=== PATIENT | male | born 1960 | race Two or more races ===

== ENCOUNTER 2022-03-29 23:24 | Inpatient (IN) | payer OTHER ==
[~2022-03-29] VITALS: Ht 180.3 cm; Wt 83.5 kg
[2022-03-29] MEDS ORDERED: CARB-98 PO (23:59)
[2022-03-29] MEDS ORDERED: PARO-38 PO (23:59)
[2022-03-30] MEDS ORDERED: ONDANSETRON HCL 4 MG/2 ML VIAL IVP PRN ×2 (03:00→06:30)
[2022-03-30] MEDS ORDERED: 0.9% SODIUM CHLORIDE 10 ML SYRINGE IVP PRN (03:00)
[2022-03-30] MEDS ORDERED: ACETAMINOPHEN 325 MG TABLET PO PRN (03:00)
[2022-03-30 03:30] LABS: COVID AG,FIA SOURCE NASOPHARYNGEAL
[2022-03-30] MEDS ORDERED: PERTUSS(ACELL),DIPH,TET VAC/PF 0.5 ML SYRINGE IM. ONE (03:30)
[2022-03-30 03:35] LABS: BASOPHILS % (AUTO) 0.4 % (0.0-2.0); EOSINOPHILS % (AUTO) 0.5 % (1.0-6.0); HEMATOCRIT 38.7 % (41-53); LYMPHOCYTES # (AUTO) 1.7 K/uL (1.0-4.8); LYMPHOCYTES % (AUTO) 19.3 % (22.0-44.0); MEAN CORPUSCULAR HEMOGLOBIN 30.9 pg (26.0-34.0); MEAN CORPUSCULAR HGB CONC 33.5 G/dL (31.0-37.0); MEAN CORPUSCULAR VOLUME 92 fL (80-100); MONOCYTES # (AUTO) 0.5 K/uL (0.1-1.0); MONOCYTES % (AUTO) 6.1 % (2.0-9.0); NEUTROPHILS # (AUTO) 6.6 K/uL (1.8-7.7); NEUTROPHILS % (AUTO) 73.7 % (40.0-70.0); PLATELET COUNT (AUTO) 146 K/uL (150-450); RED CELL DISTRIBUTION WIDTH 13.5 % (11.5-14.5)
[2022-03-30 03:46] LABS: PROTHROMBIN TIME 10.9 SEC (9.4-11.6)
[2022-03-30 03:52] LABS: ANION GAP 7 mmol/L (8-16); CALCIUM, TOTAL 8.9 mg/dL (8.8-10.5); CARBON DIOXIDE 31 mmol/L (22-29); CHLORIDE 104 mmol/L (98-107); CREATININE 0.88 mg/dL (0.60-1.30); GLUCOSE,RANDOM 107 mg/dL (70-110); POTASSIUM 3.8 mmol/L (3.5-5.1); SODIUM SERUM 142 mmol/L (136-145); UREA NITROGEN, BLOOD 21 mg/dL (7-18)
[2022-03-30 03:54] LABS: GLOMERULAR FILTR. RATE CALC > 60 mL/min (>60)
[2022-03-30 03:57] LABS: ALANINE AMINOTRANSFERASE 10 U/L (12-78); ALBUMIN 3.5 g/dL (3.4-5.0); ALKALINE PHOSPHATASE 104 U/L (46-116); ASPARTATE AMINOTRANSFERASE 21 U/L (15-37); BILIRUBIN,TOTAL 0.5 mg/dL (0.1-1.0)
[2022-03-30] MEDS ORDERED: ONDANSETRON HCL 4 MG/2 ML VIAL IVP ONE (04:00)
[2022-03-30] MEDS ORDERED: SODIUM CHLORIDE 0.9% 1,000 ML IV ONE (04:00)
[2022-03-30] MEDS ORDERED: HYDROmorphone 2 MG/ML VIAL IVP ONE (04:00)
[2022-03-30] MEDS ORDERED: BISACODYL 10 MG RECTAL RECTAL SUPPOSITORY PR PRN (06:30)
[2022-03-30] MEDS ORDERED: MAGNESIUM HYDROXIDE SUSPENSION 30 ML UDCUP PO PRN (06:30)
[2022-03-30] MEDS: HEPARIN SODIUM,PORCINE 5,000 UNITS/ML VIAL SQ SCH ×2 (08:34→17:09)
[2022-03-30] MEDS: PANTOPRAZOLE SODIUM 40 MG DR TABLET PO SCH (09:35)
[2022-03-30] MEDS: CARBIDOPA/LEVODOPA 25-100 MG TABLET PO SCH ×4 (09:35→21:05)
[2022-03-30] MEDS: PARoxetine HCL 20 MG TABLET PO SCH (09:35)
[2022-03-30] MEDS: DOCUSATE SODIUM 100 MG CAPSULE PO SCH ×2 (09:35→20:17)
[2022-03-30] MEDS: HYDROCODONE/ACETAMINOPHEN 5-325 MG TABLET PO PRN ×2 (13:35→20:17)
[2022-03-30 16:30] VITALS: BP 131/74
[2022-03-30] MEDS: MORPHINE SULFATE 2 MG/ML SYRINGE IVP PRN (17:25)
[2022-03-30 19:53] VITALS: BP 123/76
[2022-03-30] MEDS: ZOLPIDEM TARTRATE 5 MG TABLET PO PRN (21:07)
[2022-03-31] MEDS: HYDROCODONE/ACETAMINOPHEN 5-325 MG TABLET PO PRN ×3 (04:03→20:02)
[2022-03-31 04:12] VITALS: BP 135/81
[2022-03-31 06:35] LABS: BASOPHILS % (AUTO) 0.1 % (0.0-2.0); EOSINOPHILS % (AUTO) 2.1 % (1.0-6.0); HEMATOCRIT 39.9 % (41-53); HEMOGLOBIN 13.5 g/dL (13.5-17.5); LYMPHOCYTES # (AUTO) 2.3 K/uL (1.0-4.8); LYMPHOCYTES % (AUTO) 37.5 % (22.0-44.0); MEAN CORPUSCULAR HEMOGLOBIN 31.5 pg (26.0-34.0); MEAN CORPUSCULAR HGB CONC 33.9 G/dL (31.0-37.0); MEAN CORPUSCULAR VOLUME 93 fL (80-100); MONOCYTES # (AUTO) 0.5 K/uL (0.1-1.0); MONOCYTES % (AUTO) 7.7 % (2.0-9.0); NEUTROPHILS # (AUTO) 3.2 K/uL (1.8-7.7); NEUTROPHILS % (AUTO) 52.6 % (40.0-70.0); PLATELET COUNT (AUTO) 154 K/uL (150-450); RED CELL DISTRIBUTION WIDTH 13.4 % (11.5-14.5)
[2022-03-31 06:48] LABS: ANION GAP 1 mmol/L (8-16); CALCIUM, TOTAL 8.9 mg/dL (8.8-10.5); CARBON DIOXIDE 32 mmol/L (22-29); CHLORIDE 103 mmol/L (98-107); GLUCOSE,RANDOM 101 mg/dL (70-110); POTASSIUM 4.3 mmol/L (3.5-5.1); SODIUM SERUM 136 mmol/L (136-145); UREA NITROGEN, BLOOD 10 mg/dL (7-18)
[2022-03-31 06:50] LABS: GLOMERULAR FILTR. RATE CALC > 60 mL/min (>60)
[2022-03-31 07:26] VITALS: BP 130/82
[2022-03-31] MEDS: DOCUSATE SODIUM 100 MG CAPSULE PO SCH ×2 (08:35→20:01)
[2022-03-31] MEDS: HEPARIN SODIUM,PORCINE 5,000 UNITS/ML VIAL SQ SCH ×4 (08:35→23:02)
[2022-03-31] MEDS: PANTOPRAZOLE SODIUM 40 MG DR TABLET PO SCH (08:36)
[2022-03-31] MEDS: PARoxetine HCL 20 MG TABLET PO SCH (08:36)
[2022-03-31] MEDS: CARBIDOPA/LEVODOPA 25-100 MG TABLET PO SCH ×4 (08:37→20:03)
[2022-03-31] MEDS: ACETAMINOPHEN 325 MG TABLET PO PRN (13:15)
[2022-03-31 16:00] VITALS: BP 136/79
[2022-03-31 19:25] VITALS: BP 139/77
[2022-03-31] MEDS: ZOLPIDEM TARTRATE 5 MG TABLET PO PRN (23:04)
[2022-04-01 04:45] VITALS: BP 124/76
[2022-04-01 06:49] LABS: ANION GAP 4 mmol/L (8-16); CALCIUM, TOTAL 9.4 mg/dL (8.8-10.5); CARBON DIOXIDE 31 mmol/L (22-29); CHLORIDE 101 mmol/L (98-107); CREATININE 0.76 mg/dL (0.60-1.30); GLUCOSE,RANDOM 98 mg/dL (70-110); POTASSIUM 4.2 mmol/L (3.5-5.1); SODIUM SERUM 136 mmol/L (136-145); UREA NITROGEN, BLOOD 13 mg/dL (7-18)
[2022-04-01 06:55] LABS: GLOMERULAR FILTR. RATE CALC > 60 mL/min (>60)
[2022-04-01 07:34] VITALS: BP 120/81
[2022-04-01] MEDS: HEPARIN SODIUM,PORCINE 5,000 UNITS/ML VIAL SQ SCH (08:00)
[2022-04-01] MEDS: PARoxetine HCL 20 MG TABLET PO SCH (08:01)
[2022-04-01] MEDS: CARBIDOPA/LEVODOPA 25-100 MG TABLET PO SCH ×3 (08:01→22:57)
[2022-04-01] MEDS: PANTOPRAZOLE SODIUM 40 MG DR TABLET PO SCH (08:01)
[2022-04-01] MEDS: MORPHINE SULFATE 2 MG/ML SYRINGE IVP PRN ×2 (08:01→22:46)
[2022-04-01] MEDS: DOCUSATE SODIUM 100 MG CAPSULE PO SCH ×2 (08:01→22:00)
[2022-04-01] MEDS ORDERED: RINGERS SOLUTION,LACTATED 1,000 ML IV ONE ×3 (09:27→20:32)
[2022-04-01] MEDS ORDERED: DEXAMETHASONE SOD PHOS 4 MG/ML VIAL IVP ONE (12:00)
[2022-04-01] MEDS ORDERED: 0.9% SODIUM CHLORIDE 10 ML VIAL IVP ONE (12:00)
[2022-04-01] MEDS ORDERED: MIDAZOLAM HCL 2 MG/2 ML VIAL IVP ONE (12:00)
[2022-04-01] MEDS ORDERED: ROCURONIUM BROMIDE 10 MG/ML 5 ML VIAL IVP ONE (12:00)
[2022-04-01] MEDS ORDERED: EPHEDrine SULFATE 50 MG/ML VIAL IM ONE (12:00)
[2022-04-01] MEDS ORDERED: PROPOFOL 1% 20 ML VIAL IVP ONE (12:00)
[2022-04-01] MEDS ORDERED: ONDANSETRON HCL 4 MG/2 ML VIAL IVP ONE (12:00)
[2022-04-01] MEDS ORDERED: FentaNYL CITRATE PF 100 MCG/2 ML VIAL IVP ONE (12:00)
[2022-04-01] MEDS ORDERED: SODIUM CL IRRIG SOLN BAG 3,000 ML IRRIG ONE (13:06)
[2022-04-01] MEDS ORDERED: VANCOMYCIN HCL 1 GM/VIAL ONE ×2 (13:06→13:08)
[2022-04-01] MEDS ORDERED: BUPIVACAINE HCL/PF 0.25% 30 ML VIAL ONE (13:16)
[2022-04-01] MEDS ORDERED: HYDROmorphone 2 MG/ML VIAL IVP PRN ×2 (14:15→20:30)
[2022-04-01] MEDS ORDERED: FentaNYL CITRATE PF 100 MCG/2 ML VIAL IVP PRN ×2 (14:15→20:30)
[2022-04-01] MEDS ORDERED: BUPIVACAINE LIPOSOME/PF 1.3%-13.3MG/ML SUSPENSION 20 ML VIAL INJ ONE (15:00)
[2022-04-01 15:28] VITALS: BP 114/76
[2022-04-01] MEDS ORDERED: OXYGEN THERAPY IH SCH (20:00)
[2022-04-01] MEDS ORDERED: FentaNYL CITRATE PF 100 MCG/2 ML VIAL ONE (21:39)
[2022-04-01 22:33] VITALS: BP 118/66
[2022-04-02] MEDS: ZOLPIDEM TARTRATE 5 MG TABLET PO PRN ×2 (00:22→21:12)
[2022-04-02] MEDS: HEPARIN SODIUM,PORCINE 5,000 UNITS/ML VIAL SQ SCH ×4 (00:22→23:04)
[2022-04-02] MEDS: ACETAMINOPHEN 325 MG TABLET PO PRN (00:23)
[2022-04-02 03:08] VITALS: BP 120/76
[2022-04-02] MEDS: MORPHINE SULFATE 2 MG/ML SYRINGE IVP PRN ×5 (03:08→22:58)
[2022-04-02] MEDS: CeFAZolin 1 GM/DEXTROSE 50 ML IV SCH ×2 (03:10→10:13)
[2022-04-02] MEDS ORDERED: SODIUM CHLORIDE 0.9% 250 ML IV ONE (03:14)
[2022-04-02 03:15] VITALS: BP 126/74
[2022-04-02 06:28] LABS: ANION GAP 7 mmol/L (8-16); CALCIUM, TOTAL 9.2 mg/dL (8.8-10.5); CARBON DIOXIDE 27 mmol/L (22-29); CHLORIDE 101 mmol/L (98-107); CREATININE 1.12 mg/dL (0.60-1.30); GLUCOSE,RANDOM 201 mg/dL (70-110); POTASSIUM 4.9 mmol/L (3.5-5.1); SODIUM SERUM 135 mmol/L (136-145); UREA NITROGEN, BLOOD 24 mg/dL (7-18)
[2022-04-02 07:13] LABS: GLOMERULAR FILTR. RATE CALC > 60 mL/min (>60)
[2022-04-02] MEDS: CARBIDOPA/LEVODOPA 25-100 MG TABLET PO SCH ×5 (07:52→22:58)
[2022-04-02] MEDS: OXYGEN THERAPY IH SCH ×2 (07:55→20:00)
[2022-04-02] MEDS: PARoxetine HCL 20 MG TABLET PO SCH (08:06)
[2022-04-02] MEDS: PANTOPRAZOLE SODIUM 40 MG DR TABLET PO SCH (08:06)
[2022-04-02] MEDS: DOCUSATE SODIUM 100 MG CAPSULE PO SCH ×2 (08:06→21:12)
[2022-04-02] MEDS: HYDROCODONE/ACETAMINOPHEN 5-325 MG TABLET PO PRN ×3 (10:13→21:12)
[2022-04-02 15:54] VITALS: BP 126/78
[2022-04-02 19:39] VITALS: BP 140/75
[2022-04-02] MEDS ORDERED: NALOXONE HCL 0.4 MG/ML VIAL IVP PRN (21:15)
[2022-04-03 04:00] VITALS: BP 142/80
[2022-04-03] MEDS: MORPHINE SULFATE 2 MG/ML SYRINGE IVP PRN ×3 (05:38→17:21)
[2022-04-03] MEDS: CARBIDOPA/LEVODOPA 25-100 MG TABLET PO SCH ×4 (05:38→17:21)
[2022-04-03] MEDS: OXYGEN THERAPY IH SCH (08:00)
[2022-04-03 08:54] VITALS: BP 122/70
[2022-04-03] MEDS: PANTOPRAZOLE SODIUM 40 MG DR TABLET PO SCH (09:08)
[2022-04-03] MEDS: HEPARIN SODIUM,PORCINE 5,000 UNITS/ML VIAL SQ SCH ×2 (09:08→17:20)
[2022-04-03] MEDS: DOCUSATE SODIUM 100 MG CAPSULE PO SCH (09:08)
[2022-04-03] MEDS: PARoxetine HCL 20 MG TABLET PO SCH (09:09)
[2022-04-03] MEDS ORDERED: OPIC50CA PO (16:36)
[2022-04-03] MEDS ORDERED: HEPA500018 SQ (16:50)
[2022-04-03] MEDS ORDERED: AMAN68.5 PO (16:53)
[2022-04-03 16:55] VITALS: BP 121/64
[2022-04-03 16:57] LABS: COVID AG,FIA SOURCE NASOPHARYNGEAL
[2022-04-03] MEDS ORDERED: PRAM2.252 PO (16:58)
[2022-04-03] MEDS ORDERED: TRAZ-184 PO (17:01)
[2022-04-03] MEDS ORDERED: TRAZ-257 PO (17:01)
== END 2022-04-03 20:10 | DRG 315 ==
LOC: EMS 23:25 → 6N 03-30 15:08
PROVIDERS: ADMIT Internal Medicine; ATTEND Internal Medicine
PROC: 2W3AX1Z Immobilization of Right Upper Arm using Splint (ICD-10-PCS; 2022-03-30)
PROC: 0PSJ04Z Reposition Left Radius with Internal Fixation Device, Open Approach (ICD-10-PCS; principal; 2022-04-01 19:00)
DX: S52.572A Other intraarticular fracture of lower end of left radius, initial encounter for closed fracture (principal); E46 Unspecified protein-calorie malnutrition; G20 Parkinson's disease; D64.9 Anemia, unspecified; S00.83XA Contusion of other part of head, initial encounter; F32.A Depression, unspecified; F41.9 Anxiety disorder, unspecified; Z20.822 Contact with and (suspected) exposure to COVID-19; Z59.02 Unsheltered homelessness; Y08.89XA Assault by other specified means, initial encounter; Y93.89 Activity, other specified; Y92.89 Other specified places as the place of occurrence of the external cause; Y99.8 Other external cause status; Z82.3 Family history of stroke; Z68.25 Body mass index [BMI] 25.0-25.9, adult
CPT/HCPCS: 71045; 73200; 80048; 80053; 84484; 85025; 85610; 87081; 90715; 93005; 97110; 97162; 97165; 97530; 97535; 99285; C9290; J0690; J1100; J1170; J1644; J2250; J2270; J2405; J2704; J3010; J3370; J3490; J7030; J7050; J7120; 36415-L1; 36415-TC; C1716; Z7610

== ENCOUNTER 2023-02-16 13:29 | Emergency (ER) | payer OTHER ==
[~2023-02-16] VITALS: Ht 180.3 cm; Wt 87.3 kg
[~2023-02-16 13:29] MED LIST: AMAN68.5 PO; CARB1TAB36 PO; HEPA500018 SQ; OPIC50CA PO; PARO-38 PO; PRAM2.252 PO; TRAZ-184 PO; TRAZ-257 PO
[2023-02-16 13:42] VITALS: TEMP 98.9
[2023-02-16] MEDS ORDERED: LIDOCAINE/PRILOCAINE 2.5% 30 GM CREAM TP ONE (14:45)
[2023-02-16] MEDS ORDERED: ATOR20TA65 PO (14:51)
[2023-02-16] MEDS ORDERED: PRAM0.752 PO (14:51)
[2023-02-16] MEDS ORDERED: SILD20TA2 PO (14:51)
[2023-02-16] MEDS ORDERED: LEVO42CA2 IH (14:51)
[2023-02-16] MEDS ORDERED: DICL100G31 TP (14:51)
[2023-02-16] MEDS ORDERED: OPIC50CA PO (14:51)
[2023-02-16] MEDS ORDERED: NEOMYCIN/BACITRACIN/POLYMYXIN B OINTMENT PACKET TP ONE (16:00)
[2023-02-16] MEDS ORDERED: CEPH-558 PO (16:48)
[2023-02-16 16:59] VITALS: BP 111/67; PULSE 89; RESP 20
== END 2023-02-16 17:08 | disposition home or self-care (01) ==
LOC: EMS 13:34
DX: L03.031 Cellulitis of right toe (principal); F41.9 Anxiety disorder, unspecified; F32.A Depression, unspecified; G20 Parkinson's disease
CPT/HCPCS: 10060; 99283

== ENCOUNTER 2023-02-19 21:43 | Emergency (ER) | payer OTHER ==
[~2023-02-19] VITALS: Ht 177.8 cm; Wt 80.9 kg
[~2023-02-19 21:43] MED LIST changes: +ATOR20TA65 PO; +CEPH-558 PO; +DICL100G31 TP; +LEVO42CA2 IH; +PRAM0.752 PO; +SILD20TA2 PO
[2023-02-19 22:11] VITALS: TEMP 97.8
[2023-02-20] MEDS ORDERED: SODIUM CHLORIDE 0.9% 1,000 ML IV ONE (02:00)
[2023-02-20 02:41] LABS: ANION GAP 12 mmol/L (8-16); BASOPHILS % (AUTO) 0.9 % (0.0-2.0); CALCIUM, TOTAL 9.3 mg/dL (8.8-10.5); CARBON DIOXIDE 30 mmol/L (22-29); CHLORIDE 103 mmol/L (98-107); CREATININE 0.97 mg/dL (0.60-1.30); EOSINOPHILS % (AUTO) 4.9 % (1.0-6.0); GLOMERULAR FILTR. RATE CALC > 60 mL/min (>60); GLUCOSE,RANDOM 113 mg/dL (70-110); HEMATOCRIT 41.7 % (41-53); HEMOGLOBIN 13.8 g/dL (13.5-17.5); LYMPHOCYTES # (AUTO) 2.7 K/uL (1.0-4.8); LYMPHOCYTES % (AUTO) 52.1 % (22.0-44.0); MEAN CORPUSCULAR HEMOGLOBIN 31.5 pg (26.0-34.0); MEAN CORPUSCULAR HGB CONC 33.2 G/dL (31.0-37.0); MEAN CORPUSCULAR VOLUME 95 fL (80-100); MONOCYTES # (AUTO) 0.5 K/uL (0.1-1.0); MONOCYTES % (AUTO) 10.5 % (2.0-9.0); NEUTROPHILS # (AUTO) 1.6 K/uL (1.8-7.7); NEUTROPHILS % (AUTO) 31.6 % (40.0-70.0); PLATELET COUNT (AUTO) 154 K/uL (150-450); POTASSIUM 3.9 mmol/L (3.5-5.1); RED BLOOD CELL COUNT(AUTO) 4.39 MIL/uL (4.50-5.90); RED CELL DISTRIBUTION WIDTH 13.6 % (11.5-14.5); SODIUM SERUM 145 mmol/L (136-145)
[2023-02-20 02:44] LABS: ALANINE AMINOTRANSFERASE 22 U/L (12-78); ALBUMIN 3.4 g/dL (3.4-5.0); ALKALINE PHOSPHATASE 88 U/L (46-116); ASPARTATE AMINOTRANSFERASE 20 U/L (15-37); BILIRUBIN,TOTAL 0.3 mg/dL (0.1-1.0); TOTAL PROTEIN, SERUM 7.1 g/dL (6.4-8.2)
[2023-02-20 03:52] VITALS: BP 133/84; PULSE 76; RESP 16
== END 2023-02-20 03:54 | disposition home or self-care (01) ==
LOC: EMS 21:44
DX: G20 Parkinson's disease (principal); F41.9 Anxiety disorder, unspecified; F32.A Depression, unspecified
CPT/HCPCS: 99283; 80053; 85025; 96360; G0480

== ENCOUNTER 2024-05-31 15:33 | Emergency (ER) | payer OTHER ==
[~2024-05-31] VITALS: Ht 172.7 cm; Wt 90.9 kg
[~2024-05-31 15:33] MED LIST changes: -AMAN68.5 PO; -DICL100G31 TP; +DICL2100G TP; -HEPA500018 SQ; -PRAM2.252 PO; +SILD20TA14 PO; -SILD20TA2 PO; -TRAZ-257 PO
[2024-05-31 15:39] VITALS: BP 139/89; PULSE 93; RESP 18; TEMP 98.7; O2SAT 99
[2024-05-31 19:09] LABS: APPEARANCE,URINE CLEAR (CLEAR); BILIRUBIN,URINE NEGATIVE (NEGATIVE); COLOR,URINE YELLOW (YELLOW); GLUCOSE, URINE (UA) NEGATIVE (NEGATIVE); KETONES,URINE TRACE mg/dL (NEGATIVE); LEUKOCYTE ESTERASE ,URINE NEGATIVE (NEGATIVE); NITRATE,URINE NEGATIVE (NEGATIVE); OCCULT BLOOD,URINE NEGATIVE (NEGATIVE); PROTEIN,URINE NEGATIVE (NEGATIVE); SPECIFIC GRAVITIY, URINE 1.027 (1.003-1.030)
[2024-05-31 19:09] LABS: BASOPHILS % (AUTO) 0.7 % (0.0-2.0); EOSINOPHILS % (AUTO) 2.1 % (1.0-6.0); HEMATOCRIT 43.7 % (41-53); HEMOGLOBIN 14.4 g/dL (13.5-17.5); LYMPHOCYTES % (AUTO) 45.1 % (22.0-44.0); MEAN CORPUSCULAR HEMOGLOBIN 31.4 pg (26.0-34.0); MEAN CORPUSCULAR HGB CONC 32.9 G/dL (31.0-37.0); MEAN CORPUSCULAR VOLUME 95 fL (80-100); MONOCYTES # (AUTO) 0.6 K/uL (0.1-1.0); MONOCYTES % (AUTO) 8.4 % (2.0-9.0); NEUTROPHILS # (AUTO) 2.9 K/uL (1.8-7.7); NEUTROPHILS % (AUTO) 43.7 % (40.0-70.0); PLATELET COUNT (AUTO) 186 K/uL (150-450); RED BLOOD CELL COUNT(AUTO) 4.59 MIL/uL (4.50-5.90); WHITE BLOOD COUNT (AUTO) 6.7 K/uL (4.5-11.0)
[2024-05-31 19:16] LABS: ANION GAP 4 mmol/L (8-16); CALCIUM, TOTAL 8.8 mg/dL (8.8-10.5); CARBON DIOXIDE 32 mmol/L (22-29); CHLORIDE 103 mmol/L (98-107); CREATININE 0.84 mg/dL (0.60-1.30); GLOMERULAR FILTR. RATE CALC > 60 mL/min (>60); GLUCOSE,RANDOM 102 mg/dL (70-110); LIPASE 24 U/L (16-77); POTASSIUM 4.5 mmol/L (3.5-5.1); SODIUM SERUM 139 mmol/L (136-145); UREA NITROGEN, BLOOD 14 mg/dL (7-18)
[2024-05-31 19:17] LABS: ALCOHOL, URINE DRUG SCREEN NEGATIVE (NEGATIVE); AMPHET/METH SCREEN,URINE NEGATIVE (NEGATIVE); BARBITURATE SCREEN, URINE NEGATIVE (NEGATIVE); BENZODIAZEPINES SCREEN,URINE NEGATIVE (NEGATIVE); CANNABINOID SCREEN,URINE NEGATIVE (NEGATIVE); COCAINE SCREEN,URINE NEGATIVE (NEGATIVE); METHADONE SCREEN, URINE NEGATIVE (NEGATIVE); OPIATE SCREEN,URINE NEGATIVE (NEGATIVE); PHENCYCLIDINE SCREEN,URINE NEGATIVE (NEGATIVE)
[2024-05-31 19:19] LABS: BACTERIA,URINE None Seen /HPF (None Seen); RBC,URINE 0-2 /HPF (0-2); SQUAMOUS EPITHELIAL CELL,UR Rare /LPF (None Seen); WBC,URINE 0-2 /HPF (0-5)
[2024-05-31 19:20] LABS: ALCOHOL, BLOOD (SERUM) < 3 mg/dL (0-10)
[2024-05-31 19:24] LABS: LACTIC ACID 1.2 mmol/L (0.4-2.0)
[2024-05-31 19:25] LABS: TROPONIN I-HIGH SENSITIVITY Less Than 4 ng/L (<76)
[2024-05-31] MEDS ORDERED: ACET-66 PO (21:05)
[2024-05-31] MEDS ORDERED: CARB1TAB36 PO (21:05)
[2024-05-31] MEDS ORDERED: DICL100G60 TP (21:05)
[2024-05-31] MEDS ORDERED: TRAZ-184 PO (21:05)
[2024-05-31] MEDS ORDERED: PARO-38 PO (21:18)
== END 2024-05-31 21:34 | disposition home or self-care (01) ==
LOC: EMS 15:33
DX: G20.A1 Parkinson's disease without dyskinesia, without mention of fluctuations (principal); F41.9 Anxiety disorder, unspecified; F32.A Depression, unspecified; Z59.00 Homelessness unspecified
CPT/HCPCS: 99285; 71045; 80048; 81001; 83605; 83690; 84484; 85025; 36415; 93005; 80307; G0480

== ENCOUNTER 2024-12-09 11:10 | Emergency (ER) | payer OTHER ==
[~2024-12-09] VITALS: Ht 177.8 cm; Wt 88.6 kg
[~2024-12-09 11:10] MED LIST changes: +ACET-66 PO; +DICL100G60 TP
[2024-12-09 11:20] VITALS: BP 100/57; PULSE 86; RESP 18; TEMP 97.9; O2SAT 98
== END 2024-12-09 12:10 | disposition left against medical advice (07) ==
LOC: EMS 11:10
DX: H57.89 Other specified disorders of eye and adnexa (principal); Z53.21 Procedure and treatment not carried out due to patient leaving prior to being seen by health care provider